=== PATIENT | female | born 1995 | race Caucasian/White ===

== ENCOUNTER 2019-11-29 20:13 | Emergency (ER) | payer OTHER ==
[~2019-11-29] VITALS: Ht 152.4 cm; Wt 67.6 kg
[2019-11-29 20:33] VITALS: BP 133/81; Ht 152.4 cm; Wt 67.6 kg
== END 2019-11-29 21:11 | disposition home or self-care (01) ==
LOC: ED 20:13
DX: S43.402A Unspecified sprain of left shoulder joint, initial encounter (principal); S43.401A Unspecified sprain of right shoulder joint, initial encounter; S16.1XXA Strain of muscle, fascia and tendon at neck level, initial encounter; V49.9XXA Car occupant (driver) (passenger) injured in unspecified traffic accident, initial encounter; Y93.I9 Activity, other involving external motion; Y92.413 State road as the place of occurrence of the external cause; Y99.8 Other external cause status